=== PATIENT | male | born 1955 | race Caucasian/White ===

== ENCOUNTER 2022-01-11 17:09 | Emergency (ER) | payer OTHER, MEDICARE ==
[2022-01-11 17:32] VITALS: BMI 28.3
[2022-01-11] MEDS ORDERED: ACETAMINOPHEN 1000 MG/100 ML BAG IVPB ONE (18:13)
[2022-01-11] MEDS ORDERED: ACETAMINOPHEN INJECTION 100 ML IVPB ONE (18:42)
[2022-01-11 18:48] LABS: BASO % 0.7 % (0-2.0); EOS % 1.5 % (0-4.5); HEMATOCRIT 41.4 % (35.4-49); HEMOGLOBIN 13.9 GM/dL (11.7-16.9); LYMPH % 22.1 % (8-40); MCH 28.2 pg (25.7-33.7); MCHC 33.5 g/dl (32.0-35.9); MEAN CELL VOLUME 84.1 fl (80-96); MONO % 10.3 % (3.8-10.2); NEUT % 65.4 % (42.8-82.8); PLATELET COUNT 314 10^3/uL (134-434); RBC 4.92 M/mm3 (4.00-5.60); RDW 12.8 % (11.9-15.9); WHITE BLOOD COUNT 9.1 K/mm3 (4.0-10.0)
[2022-01-11 18:58] LABS: INR 1.11 (0.83-1.09); PROTHROMBIN TIME (PATIENT) 12.8 SEC (9.7-13.0)
[2022-01-11 19:01] LABS: ACTIVATED PTT 34.5 SECONDS (25.2-36.5)
[2022-01-11 19:10] LABS: BLOOD UREA NITROGEN 22.7 mg/dL (7-18); CALCIUM 9.4 mg/dL (8.5-10.1)
[2022-01-11 19:13] LABS: CREATININE 0.9 mg/dL (0.55-1.3)
[2022-01-11 19:15] LABS: BILIRUBIN,TOTAL 0.5 mg/dL (0.2-1); TOT PROT 7.1 g/dl (6.4-8.2)
[2022-01-11 21:13] VITALS: BP 131/81; PULSE 91; RESP 17; TEMP 98.8
== END 2022-01-12 01:55 | disposition short-term general hospital (02) ==
LOC: JER 17:09
PROC: 3E0333Z Introduction of Anti-inflammatory into Peripheral Vein, Percutaneous Approach (ICD-10-PCS; principal; 2022-01-11)
DX: R06.02 Shortness of breath (principal); I31.3 Pericardial effusion (noninflammatory)
CPT/HCPCS: 0241U-QW; 36415; 71045-TC-FY; 71275-TC; 80053; 84484; 85025; 85610; 85730; 93005; 93010; 99285-25; Q9967

== ENCOUNTER 2022-08-30 04:17 | Day surgery (SDC) | payer OTHER, MEDICARE ==
[2022-08-28 16:01] VITALS: BMI 29.9
[2022-08-30 08:50] VITALS: BP 110/63; PULSE 67; RESP 16; TEMP 97.5
== END 2022-08-30 08:55 | disposition home or self-care (01) ==
LOC: JASU-ENDO 04:17
PROVIDERS: ATTEND Internal Medicine Gastroenterology
PROC: 0DJD8ZZ Inspection of Lower Intestinal Tract, Via Natural or Artificial Opening Endoscopic (ICD-10-PCS; principal; 2022-08-30 08:00)
DX: Z12.11 Encounter for screening for malignant neoplasm of colon (principal); K57.30 Diverticulosis of large intestine without perforation or abscess without bleeding